=== PATIENT | female | born 1945 | race Hispanic/Latino ===

== ENCOUNTER 2016-09-20 11:10 | Outpatient (CLI) | payer OTHER ==
--- NOTE | 2016-09-20 15:23 | Mammography Report ---
BONE DEXA:09/20/16 11:10:00 CLINICAL: Postmenopausal. No comparison. TECHNIQUE: Two site bone DEXA performed on an Hologic scanner. FINDINGS: The average BMD of the lumbar spine L1-L4 is 0.903g/cm squared with a T-score of -1.3 and a Z-score of +0.9. The average BMD of the left hip is 0.76g/cm squared with a T-score of -1.8 and a Z-score of -0.2. IMPRESSION: WHO classification: Osteopenia with increased fracture risk based on both spine and left hip measurements. RECOMMENDATION: Clinical correlation and routine screening. DEFINITIONS: BMD = Bone Mineral Density T-score = BMD related to mean peak bone mass of young adult (mean expressed in Standard Deviation) Z-score = Age matched BMD expressed in SD World Health Organization (WHO) Diagnostic Criteria Normal T-score > -1 SD Osteopenia T-score between -1 and -2.4 SD Osteoporosis T-score -2.5 SD or below NOTE: BMD is not the only risk factor for fracture. One should also consider factors such as the patient's age, risk of falling, previous osteoporotic fracture, family history of osteoporotic fractures, current smoker, and low body weight. Z-scores are not calculated if >80 years of age.
== END 2016-09-20 11:11 | disposition home or self-care (01) ==
LOC: SPVWC 11:10
PROVIDERS: ATTEND Family Medicine
DX: M85.88 Other specified disorders of bone density and structure, other site (principal); Z78.0 Asymptomatic menopausal state
CPT/HCPCS: 77080

== ENCOUNTER 2020-04-12 11:19 | Outpatient (CLI) | payer OTHER ==
--- NOTE | 2020-04-13 09:22 | Ultrasound Report ---
EXAMINATION: Right Complete Breast Ultrasound, 04/12/2020 INDICATION: H/O LEFT BRST CA. Patient presents for reported hardening of the right breast, with right breast impl ant in place. COMPARISON: None. FINDINGS: Complete sonographic evlauation of all 4 quadrants and retroareolar region was performed. Complete ultrasound of the right breast reveals a right breast implant containing scattered areas of linear internal echoes, worrisome for implant rupture. No suspicious cystic or solid lesion is identi fied in the right breast. Ultrasound of the right axilla reveals multiple nodular areas of increased echogenicity with associated posterior dirty shadowing (snowstorm appearance), most compatible with e xtracapsular silicone, with the largest component measuring up to 2.5 cm. IMPRESSION: 1. Sonographic findings suggestive of right breast implant rupture and extracapsular free silicone id entified in the right axilla. Follow up recommendation: Clinical exam BI-RADS Category 2: Benign. Signer Name: Miladis Pedro MD Signed: 04/13/2020 9:17 AM Workstation Name: [id number]
== END 2020-04-12 11:20 | disposition home or self-care (01) ==
LOC: SPVWC 11:19
PROVIDERS: ATTEND Surgery
DX: N63.10 Unspecified lump in the right breast, unspecified quadrant (principal); Z85.3 Personal history of malignant neoplasm of breast